=== PATIENT | female | born 1980 | race American Indian/Alaskan Native ===

== ENCOUNTER 2017-09-23 01:41 | Emergency (ER) | payer SELFPAY ==
[2017-09-23] MEDS ORDERED: Sodium Chloride 0.9% 1,000 ML IV STA (02:19)
[2017-09-23 02:46] LABS: BASO # 0.05 K/mm3 (0.0-2.0); BASO % 1.1 % (0.0-3.0); EOS # 0.1 (0.0-0.7); EOS % 1.5 % (1.5-5.0); GRAN # 2.2 (1.4-6.5); GRAN % 46.7 % (50.0-68.0); HEMOGLOBIN 12.9 g/dL (12.0-16.0); LYMPH # 2.1 (1.2-3.4); LYMPH % 45.4 % (22.0-35.0); MEAN CELL VOLUME 96.4 fl (80.0-105.0); MEAN CORPUSCULAR HEMOGLOBIN 33.2 pg (25.0-35.0); MEAN CORPUSCULAR HGB CONC 34.4 g/dl (31.0-37.0); MEAN PLATELET VOLUME 9.9 fl (7.0-11.0); MONO # 0.3 (0.1-0.6); MONO % 5.3 % (1.0-6.0); RBC 3.89 10^6/uL (3.5-6.1); RED CELL DISTRIBUTION WIDTH 12.5 % (11.5-14.5); WHITE BLOOD COUNT 4.7 10^3/ul (4.5-11.0)
--- NOTE | 2017-09-23 02:53 | ED PDOC ---
Arrival/HPI - General Chief Complaint: Chest Pain Time Seen by Provider: 09/23/17 02:12 Historian: Patient - History of Present Illness Narrative History of Present Illness (Text): 09/23/17 02:19 37 year old female, with no significant past medical history, presents to the Emergency department complaining of substernal chest pain that began earlier today. Patient describes the pain as sharp, but not radiating. Patient denies any cardiac history. Patient denies any fevers, chills, shortness of breath, abdominal pain, nausea, vomiting, diarrhea, back pain, neck pain, urinary/bowel changes, headache, dizziness, or any other complaint. Time/Duration: Other (today ) Symptom Onset: Sudden Activities at Onset: Light Context: Home Past Medical History - Provider Review Nursing Documentation Reviewed: Yes - Pulmonary Hx Asthma: Yes - Psychiatric Hx Substance Use: No Family/Social History - Physician Review Nursing Documentation Reviewed: Yes Family/Social History: No Known Family HX Smoking Status: y Hx Alcohol Use: Yes Hx Substance Use: No Allergies/Home Meds Allergies/Adverse Reactions: Allergies aspirin Allergy (Verified 09/23/17 02:18) RASH Penicillins Allergy (Verified 09/23/17 02:18) RASH Home Medications: Home Meds Medication Instructions Recorded Confirmed No Known Home Med 09/23/17 09/23/17 Review of Systems - Physician Review All systems were reviewed & negative as marked: Yes - Review of Systems Constitutional: absent: Fevers, Other (Chills) Respiratory: absent: SOB Cardiovascular: Chest Pain Gastrointestinal: absent: Abdominal Pain, Diarrhea, Nausea, Vomiting Genitourinary Female: absent: Dysuria, Frequency, Hematuria Musculoskeletal: absent: Back Pain, Neck Pain Neurological: absent: Headache, Dizziness Physical Exam Vital Signs Reviewed: Yes Appearance: Positive for: Well-Appearing, Non-Toxic, Comfortable Pain Distress: None Mental Status: Positive for: Alert and Oriented X 3 - Systems Exam Head: Present: Atraumatic, Normocephalic Pupils: Present: PERRL Extroacular Muscles: Present: EOMI Conjunctiva: Present: Normal Mouth: Present: Moist Mucous Membranes Neck: Present: Normal Range of Motion Respiratory/Chest: Present: Clear to Auscultation, Good Air Exchange. No: Respiratory Distress, Accessory Muscle Use Cardiovascular: Present: Regular Rate and Rhythm, Normal S1, S2. No: Murmurs Abdomen: Present: Normal Bowel Sounds. No: Tenderness, Distention, Peritoneal Signs Back: Present: Normal Inspection Upper Extremity: Present: Normal Inspection. No: Cyanosis, Edema Lower Extremity: Present: Normal Inspection. No: Edema Neurological: Present: GCS=15, CN II-XII Intact, Speech Normal Skin: Present: Warm, Dry, Normal Color. No: Rashes Psychiatric: Present: Alert, Oriented x 3, Normal Insight, Normal Concentration Medical Decision Making ED Course and Treatment: 09/23/17 02:19 Impression: 37 year old female presents complaining of substernal chest pain that began earlier today. Plan: -- EKG -- Labs -- CXR -- IV Fluids -- Urinalysis -- Reassess and disposition Progress Notes: EKG shows NSR at 82 BPM. Interpreted by me. 09/23/17 04:12 CXR Impression: As read by me NAD - Lab Interpretations Lab Results: 09/23/17 02:30 09/23/17 02:30 Lab Results 09/23/17 02:30: Sodium 148, Potassium 4.6, Chloride 112 H, Carbon Dioxide 25, Anion Gap 16, BUN 9, Creatinine 0.9, Est GFR ( Amer) > 60, Est GFR (Non- Af Amer) > 60, Random Glucose 93, Calcium 9.2, Magnesium 2.0, Total Bilirubin 0.4, AST 75 H, ALT 35, Alkaline Phosphatase 70, Lactate Dehydrogenase 577, Total Creatine Kinase 682 H, CK-MB (CK-2) 3.0, CK-MB (CK-2) % Cancelled, Troponin I < 0.01, NT-Pro-B Natriuret Pep < 11.1, Total Protein 8.1, Albumin 4.5 , Globulin 3.6, Albumin/Globulin Ratio 1.3, Lipase 474 H 09/23/17 02:30: D-Dimer, Quantitative 228 09/23/17 02:30: WBC 4.7, RBC 3.89, Hgb 12.9, Hct 37.5, MCV 96.4, MCH 33.2, MCHC 34.4, RDW 12.5, Plt Count 155, MPV 9.9, Gran % 46.7 L, Lymph % (Auto) 45.4 H, [place] % (Auto) 5.3, Eos % (Auto) 1.5, Baso % (Auto) 1.1, Gran # 2.20, Lymph # 2.1 , [place] # 0.3, Eos # 0.1, Baso # 0.05 I have reviewed the lab results: Yes - RAD Interpretation Radiology Orders: 09/23/17 02:19 CHEST PORTABLE [RAD] Stat - EKG Interpretation Interpreted by ED Physician: Yes Type: 12 lead EKG - Medication Orders Current Medication Orders: Discontinued Medications Sodium Chloride (Sodium Chloride 0.9%) 1,000 mls @ 999 mls/hr IV .Q1H1M STA Stop: 09/23/17 03:19 Last Admin: 09/23/17 02:44 Dose: 999 mls/hr eMAR Start Stop Document 09/23/17 02:44 SS (Rec: 09/23/17 02:46 SS [id number]) Intravenous Solution Start Date 09/23/17 Start Time 02:45 End Date 09/23/17 End time 03:46 Total Infusion Time 61 - Scribe Statement The provider has reviewed the documentation as recorded by the Elena Mayo Provider Scribe Attestation: All medical record entries made by the Elena were at my direction and personally dictated by me. I have reviewed the chart and agree that the record accurately reflects my personal performance of the history, physical exam, medical decision making, and the department course for this patient. I have also personally directed, reviewed, and agree with the discharge instructions and disposition. Disposition/Present on Arrival - Present on Arrival Any Indicators Present on Arrival: No History of DVT/PE: No History of Uncontrolled Diabetes: No Urinary Catheter: No History of Decub. Ulcer: No History Surgical Site Infection Following: None - Disposition Have Diagnosis and Disposition been Completed?: Yes Diagnosis: Non-cardiac chest pain Disposition: HOME/ ROUTINE Disposition Time: 04:10 Condition: GOOD Discharge Instructions (ExitCare): Chest Pain (ED) Additional Instructions: Thank you for letting us take care of you today. The emergency medical care you received today was directed at your acute symptoms. If you were prescribed any medication, please fill it and take as directed. It may take several days for your symptoms to resolve. Return to the Emergency Department if your symptoms worsen, do not improve, or if you have any other problems. Please contact your doctor or call one of the physicians/clinics you have been referred to that are listed on the Patient Visit Information form that is included in your discharge packet. Bring any paperwork you were given at discharge with you along with any medications you are taking to your follow up visit. Our treatment cannot replace ongoing medical care by a primary care provider (PCP) outside of the emergency department. Thank you for allowing the [facility] team to be part of your care today. Follow up with the clinic or your doctor in 3-4 days for outpatient care. Referrals: [facility] [Outside] - Follow up with primary [facility] [place] [Outside] - Follow up with primary
[2017-09-23 03:09] LABS: ALB/GLOB RATIO 1.3 (1.1-1.8); ALBUMIN 4.5 g/dL (3.0-4.8); ALT/SGPT 35 U/L (7-56); AST/SGOT 75 U/L (14-36); BLOOD UREA NITROGEN 9 mg/dL (7-21); CALCIUM 9.2 mg/dL (8.4-10.5); GFR AFRICAN-AMERICAN > 60; GFR NON-AFRICAN AMERICAN > 60; LIPASE 474 U/L (23-300); TROPONIN I < 0.01 ng/mL
[2017-09-23 03:10] LABS: B-TYPE NATRIURETIC PEPTIDE < 11.1 pg/mL (0-450)
--- NOTE | 2017-09-23 09:05 | RAD ---
HISTORY: Chest pain COMPARISON: No prior. FINDINGS: LUNGS: The lungs are well inflated and clear. PLEURA: No significant pleural effusion identified, no pneumothorax apparent. CARDIOVASCULAR: Normal. OSSEOUS STRUCTURES: No significant abnormalities. VISUALIZED UPPER ABDOMEN: Normal. OTHER FINDINGS: None. IMPRESSION: No active pulmonary disease.
--- NOTE | 2017-09-23 15:55 | CARD ---
APPROVED REPORT EKG Measurement Heart [id number] <Conclusion> Normal sinus rhythm Normal ECG
== END 2017-09-23 05:31 | disposition home or self-care (01) ==
LOC: ED 01:41 → MERGE 01:41 → ED 05:31
DX: R07.89 Other chest pain (principal)
CPT/HCPCS: 71045; 80053; 82550; 82553; 83615; 83690; 83735; 83880; 84484; 85025; 85378; 93005; 96360; 99283; J7040